=== PATIENT | female | born 1980 | race Caucasian/White ===

== ENCOUNTER 2017-02-14 17:56 | Emergency (ER) | payer SELFPAY ==
[~2017-02-14 17:56] MED LIST: ACETAZOLAMIDE500 M1 PO; ADVIL200 M1 PO; ALBUTEROL17 GM INH; AMOXICILLIN; GUIATUSS AC SY120 ML PO; HYDROCODON-ACE1 EAC8 PO; IBUPROFEN800 MG PO; NORCO 5/325 TAB1 TAB PO; SUDAFED PO; TRAMADOL HCL50 MG PO; ZOFRAN ODT4 MG/UDTAB PO
[2017-06-18] MEDS ORDERED: METOPROLOL TART25 M1 PO (08:49)
== END 2017-02-14 20:45 ==
LOC: EDMED 17:56
DX: R60.0 Localized edema (principal); Z87.891 Personal history of nicotine dependence

== ENCOUNTER 2017-06-09 21:30 | Emergency (ER) | payer SELFPAY ==
[~2017-06-09] VITALS: Ht 172.7 cm; Wt 170.0 kg
[2017-06-09] MEDS ORDERED: TOPROL XL25 M1 PO (21:47)
[2017-06-09 22:30] LABS: BASO % 0.2 % (0-2); EOS % 2.8 % (0-7); EOSINOPHIL ABSOLUTE COUNT 0.3 tho/cmm (0.0-0.7); HCT-HEMATOCRIT 38.1 % (34.0-49.0); HGB-HEMOGLOBIN 13.3 gm/dl (12.0-15.5); IMMATURE GRANULOCYTES ABSOLUTE 0.06 tho/cmm (0-0.03); IMMATURE GRANULOCYTES PERCENT 0.5 % (0-0.3); LYMPH % 29.9 % (20-45); LYMPH ABSOLUTE COUNT 3.6 tho/cmm (0.8-4.5); MCH (MEAN CORPUSCULAR HGB) 30.3 pg (28.0-32.0); MCHC MEAN CORPUSCULAR HGB CONC 34.9 % (32.0-36.0); MCV (MEAN CELL VOLUME) 86.8 fl (82.0-96.0); MEAN PLATELET VOLUME 10.3 cmc (9.4-12.4); MONO % 6.7 % (0-12); MONOCYTE ABSOLUTE COUNT 0.8 tho/cmm (0.0-1.2); NEUTROPHIL ABSOLUTE COUNT 7.3 tho/cmm (1.6-8.0); NEUTROPHIL-AUTOMATED 7.3 tho/cmm (1.6-8.0); NEUTROPHILS % 59.9 % (40-80); PLATELET COUNT 316 tho/cmm (150-450); RED BLOOD COUNT 4.39 mil/cmm (4.00-5.20); RED CELL DISTRIBUTION WIDTH 12.8 % (12.4-16.4); WHITE BLOOD COUNT 12.2 tho/cmm (4.0-10.0)
[2017-06-09 22:36] LABS: PREGNANCY-SERUM NEGATIVE (NEGATIVE)
[2017-06-09 22:44] LABS: ANION GAP 13 mmol/L (0-20); BLOOD UREA NITROGEN 17 mg/dl (6-24); CALCIUM 8.6 mg/dl (8.5-10.5); CARBON DIOXIDE-VENOUS 28 mmol/L (22-32); CHLORIDE 104 mmol/l (96-110); CREATININE 0.88 mg/dl (0.50-1.10); GLUCOSE 160 mg/dL (70-110); POTASSIUM 3.6 mmol/L (3.7-5.1); SODIUM 141 mmol/L (135-145); eGFR VALUE FOR BLACK >90 mL/Min
== END 2017-06-09 23:26 ==
LOC: EDMED 21:30
PROVIDERS: Physician Assistant
DX: R07.89 Other chest pain (principal); Z87.891 Personal history of nicotine dependence